=== PATIENT | female | born 1975 | race Caucasian/White ===

== ENCOUNTER 2019-05-19 21:19 | Emergency (ER) | payer BC ==
[2019-05-19] MEDS ORDERED: KETOROLAC 30 MG/ML INJ ONE (22:29)
[2019-05-19] MEDS ORDERED: dexAMETHasone 10 MG/ML VIAL ONE (22:29)
[2019-05-19] MEDS ORDERED: HYDROCODONE/CHLORPHEN 5 ML/OSYR ONE (22:29)
[2019-05-19 22:36] LABS: BUN Blood Urea Nitrogen 5 mg/dL (7-18); Bicarbonate 26 mmol/L (21-32); Glucose Level 90 mg/dL (74-106); Potassium 3.3 mmol/L (3.5-5.1); Sodium Level 140 mmol/L (136-145)
--- NOTE | 2019-05-19 22:49 | ER ---
Nurse's Notes [facility] Name: Ngoc Coelho Age: 44 yrs Sex: Female : 1975 Arrival Date: 05/19/2019 Time: 21:22 Bed 14 Private MD: Diagnosis: Chest pain, unspecified;Pleurisy Presentation: 05/19 21:26 Presenting complaint: Patient states: She has had a cough since , today she aj1 started having chest pain that is worse when she coughs or takes a deep breath. Denies fever. Reports nasal congestion, nausea, vomiting. Denies diarrhea. Transition of care: patient was not received from another setting of care. Onset of symptoms was May 19, 2019. Risk Assessment: Do you want to hurt yourself or someone else? Patient reports no desire to harm self or others. Initial Sepsis Screen: Does the patient meet any 2 criteria? No. Patient's initial sepsis screen is negative. Does the patient have a suspected source of infection? Yes: Productive cough/pneumonia. Care prior to arrival: None. 21:26 Method Of Arrival: Ambulatory [facility] 21:26 Acuity: LEXA 4 aj1 Triage Assessment: 21:29 General: Appears in no apparent distress. comfortable, Behavior is calm, cooperative, aj1 appropriate for age. Pain: Complains of pain in chest Pain currently is 6 out of 10 on a pain scale. Pain: Pain radiates to back Quality of pain is described as stabbing, Is continuous, Aggravated by coughing, deep breathing. Neuro: Level of Consciousness is awake, alert, obeys commands, Oriented to person, place, time, situation. Cardiovascular: Reports chest pain, Denies lightheadedness, palpitations, shortness of breath, Patient's skin is warm and dry. Respiratory: Airway is patent Respiratory effort is even, unlabored, Respiratory pattern is regular, symmetrical. Derm: Skin is pink, warm \T\ dry. normal. 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 - Social history:: Smoking status: Patient uses tobacco products, smokes one-half pack cigarettes per day. - Ebola Screening: : Patient denies travel to an Ebola-affected area in the 21 days before illness onset. - Family history:: not pertinent. - Hospitalizations: : No recent hospitalization is reported. Screenin:40 Abuse screen: Denies threats or abuse. Denies injuries from another. Nutritional wh screening: No deficits noted. Tuberculosis screening: No symptoms or risk factors identified. Fall Risk None identified. Assessment: 21:40 General: Appears in no apparent distress. Behavior is calm, cooperative, appropriate wh for age. Pain: Complains of pain in back and chest Pain does not radiate. Pain currently is 5 out of 10 on a pain scale. Pain began gradually. Neuro: Level of Consciousness is awake, alert, obeys commands, Oriented to person, place, time, situation, Appropriate for age. Cardiovascular: Heart tones S1 S2 Chest pain from coughing. Respiratory: Reports cough that is pain with cough Airway is patent Respiratory effort is even, unlabored, Respiratory pattern is regular, symmetrical, Breath sounds are clear bilaterally. GI: Abdomen is flat, non-distended. : No signs and/or symptoms were reported regarding the genitourinary system. EENT: No signs and/or symptoms were reported regarding the EENT system. Derm: Skin is intact, is healthy with good turgor, Skin is pink, warm \T\ dry. normal. Musculoskeletal: Circulation, motion, and sensation intact. 22:40 Reassessment: Patient appears in no apparent distress at this time. No changes from previously documented assessment. Patient and/or family updated on plan of care and expected duration. Pain level reassessed. Patient is alert, oriented x 3, equal unlabored respirations, skin warm/dry/pink. Vital Signs: 21:29 BP 122 / 67; Pulse 71; Resp 18; Temp 97.7; Pulse Ox 99% on R/A; Weight 77.56 kg (R); aj1 Height 5 ft. 7 in. (170.18 cm) (R); Pain 6/10; 22:39 BP 116 / 63; Pulse 59; Resp 18; Pulse Ox 99% on R/A; wh 21:29 Body Mass Index 26.78 (77.56 kg, 170.18 cm) aj1 ED Course: 21:22 Patient arrived in ED. jg7 21:29 Triage completed. aj1 21:29 Arm band placed on Patient placed in an exam room. [facility] 21:32 Carlos Mas MD is Attending Physician. rn 21:33 George Rosa is Primary Nurse. 21:40 Patient has correct armband on for positive identification. Placed in gown. Bed in low wh position. Call light in reach. Side rails up X 1. Pulse ox on. NIBP on. 21:50 Inserted saline lock: 22 gauge in right antecubital area, using aseptic technique. Blood collected. Patient maintains SpO2 saturation greater than 95% on room air. 22:15 XRAY Chest Pa And Lat (2 Views) In Process Unspecified. EDMS 22:56 No provider procedures requiring assistance completed. IV discontinued, intact, wh bleeding controlled, No redness/swelling at site. Administered Medications: 22:30 Drug: Tussionex Pennkinetic ER 5 ml Route: PO; 22:58 Follow up: Response: No adverse reaction; RASS: Alert and Calm (0) 22:34 Drug: TORadol - Ketorolac 15 mg Route: IVP; Site: right antecubital; 22:57 Follow up: Response: No adverse reaction 22:38 Drug: Decadron - Dexamethasone 10 mg Route: IVP; Site: right antecubital; 22:57 Follow up: Response: No adverse reaction Outcome: 22:48 Discharge ordered by MD. rn 22:56 Discharged to home ambulatory, with family. 22:56 Condition: stable 22:56 Discharge instructions given to patient, family, Instructed on discharge instructions, follow up and referral plans. no drinking with medication, no driving heavy equipment, medication usage, POC Demonstrated understanding of instructions, follow-up care, medications, POC Prescriptions given X 3. 22:58 Patient left the ED. Signatures: Dispatcher [employer] EDMS Berenice Cain, RN RN aj1 Carlos Mas MD MD rn Habalo, Winsy Genevieve Berry jg7
--- NOTE | 2019-05-19 22:49 | EDPHYS ---
Physician Documentation [facility] Name: Ngoc Coelho Age: 44 yrs Sex: Female : 1975 Arrival Date: 05/19/2019 Time: 21:22 Bed 14 Private MD: ED Physician Carlos Mas HPI: 05/19 21:43 This 44 yrs old Female presents to ER via Ambulatory with complaints of Chest rn Pain, Cough. 21:43 The patient or guardian reports chest pain that is located primarily in the anterior rn chest wall. Onset: today. The pain radiates to Associated signs and symptoms: Pertinent positives: cough, Pertinent negatives: diaphoresis, dizziness, headache, lower extremity pain, lower extremity swelling, lightheadedness, near syncope, palpitations, shortness of breath, syncope. The chest pain is described as sharp, stabbing. Duration: The patient or guardian reports multiple episodes, that are intermittent. Modifying factors: The symptoms are alleviated by nothing. the symptoms are aggravated by cough, deep breath. Severity of pain: At its worst the pain was moderate in the emergency department the pain is unchanged. The patient has not experienced similar symptoms in the past. Reports chest pain, began today, following cough for 2 weeks, non-productive, + smoker, no hemoptysis, no DVT/PE hx or risk factors. No trauma. No weight loss. . 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 - Social history:: Smoking status: Patient uses tobacco products, smokes one-half pack cigarettes per day. - Ebola Screening: : Patient denies travel to an Ebola-affected area in the 21 days before illness onset. - Family history:: not pertinent. - Hospitalizations: : No recent hospitalization is reported. ROS: 21:43 Constitutional: Negative for fever, chills, and weight loss, Eyes: Negative for injury, rn pain, redness, and discharge, ENT: Negative for injury, pain, and discharge, Neck: Negative for injury, pain, and swelling, Cardiovascular: + chest pain Respiratory: + cough and pleuritic chest pain Abdomen/GI: Negative for abdominal pain, diarrhea, and constipation, MS/Extremity: Negative for injury and deformity, Skin: Negative for injury, rash, and discoloration, Neuro: Negative for headache, weakness, numbness, tingling, and seizure. Exam: 21:43 Constitutional: This is a well developed, well nourished patient who is awake, alert, rn and in no acute distress. Head/Face: Normocephalic, atraumatic. Eyes: Pupils equal round and reactive to light, extra-ocular motions intact. Lids and lashes normal. Conjunctiva and sclera are non-icteric and not injected. Cornea within normal limits. Periorbital areas with no swelling, redness, or edema. ENT: No oral swelling or stridor Cardiovascular: Regular rate and rhythm, No pulse deficits. Respiratory: Lungs have equal breath sounds bilaterally, clear to auscultation. No increased work of breathing, no retractions or nasal flaring. Abdomen/GI: soft, non-tender MS/ Extremity: Pulses equal, no cyanosis. Neurovascular intact. Full, normal range of motion. Equal circumference. Neuro: Awake and alert, GCS 15, oriented to person, place, time, and situation. Cranial nerves II-XII grossly intact. Motor strength 5/5 in all extremities. Sensory grossly intact 22:10 ECG was reviewed by the Attending Physician. rn Vital Signs: 21:29 BP 122 / 67; Pulse 71; Resp 18; Temp 97.7; Pulse Ox 99% on R/A; Weight 77.56 kg (R); aj1 Height 5 ft. 7 in. (170.18 cm) (R); Pain 6/10; 22:39 BP 116 / 63; Pulse 59; Resp 18; Pulse Ox 99% on R/A; wh 21:29 Body Mass Index 26.78 (77.56 kg, 170.18 cm) aj1 MDM: 21:32 Patient medically screened. rn 22:20 Test interpretation: by ED physician or midlevel provider: ECG, plain radiologic rn studies, Xray neg for pneumothorax/pneumonia/acute process. 22:47 Differential diagnosis: acute pericarditis, chest wall pain, costochondritis, rn esophagitis, pericarditis, pleurisy, pneumonia, pneumothorax, pulmonary embolus. Data reviewed: vital signs, nurses notes, lab test result(s), EKG, radiologic studies, plain films, and as a result, I will discharge patient. Counseling: I had a detailed discussion with the patient and/or guardian regarding: the historical points, exam findings, and any diagnostic results supporting the discharge/admit diagnosis, lab results, radiology results, the need for outpatient follow up, to return to the emergency department if symptoms worsen or persist or if there are any questions or concerns that arise at home. Counseling: I had a detailed discussion with the patient and/or guardian regarding: smoking cessation. Response to treatment: the patient's symptoms have mildly improved after treatment, and as a result, I will discharge patient. Special discussion: I discussed with the patient/guardian in detail that at this point there is no indication for admission to the hospital. It is understood, however, that if the symptoms persist or worsen the patient needs to return immediately for re-evaluation. 05/19 21:43 Order name: Basic Metabolic Panel; Complete Time: 22:42 05/19 21:43 Order name: D-Dimer; Complete Time: 22:42 05/19 21:43 Order name: XRAY Chest Pa And Lat (2 Views) 05/19 21:43 Order name: Flu; Complete Time: 22:42 05/19 21:43 Order name: IV Start; Complete Time: 22:09 05/19 21:43 Order name: EKG; Complete Time: 21:44 05/19 21:43 Order name: EKG - Nurse/Tech; Complete Time: 22:09 rn EC:10 Rate is 64 beats/min. Rhythm is regular. QRS [place] is Normal. [place] interval is normal. QRS rn interval is normal. QT interval is normal. No Q waves. T waves are Normal. No ST changes noted. Clinical impression: Normal ECG. Interpreted by me. Reviewed by me. Administered Medications: 22:30 Drug: Tussionex Pennkinetic ER 5 ml Route: PO; 22:58 Follow up: Response: No adverse reaction; RASS: Alert and Calm (0) 22:34 Drug: TORadol - Ketorolac 15 mg Route: IVP; Site: right antecubital; 22:57 Follow up: Response: No adverse reaction 22:38 Drug: Decadron - Dexamethasone 10 mg Route: IVP; Site: right antecubital; 22:57 Follow up: Response: No adverse reaction Disposition: 05/19/19 22:48 Discharged to Home. Impression: Chest pain, unspecified, Pleurisy. - Condition is Stable. - Discharge Instructions: Nonspecific Chest Pain, Pleurisy. - Prescriptions for Ultram 50 mg Oral Tablet - take 1 tablet by ORAL route every 6 hours As needed; 15 tablet. Medrol (Pj) 4 mg Oral Tablets, Dose Pack - take 1 tablet by ORAL route as directed - follow package instructions; 1 packet. Guaifenesin AC 10- 100 mg/5 mL Oral Liquid - take 10 milliliter by ORAL route every 4 hours As needed; 240 milliliter. - Medication Reconciliation Form, Thank You Letter, Antibiotic Education, Prescription Opioid Use form. - Follow up: Private Physician; When: As needed; Reason: Recheck today's complaints, Re-evaluation by your physician. - Problem is new. - Symptoms have improved. Signatures: Dispatcher [employer] EDBerenice Barth RN RN aj1 Carlos Mas MD MD rn Habalo, Winsy Corrections: (The following items were deleted from the chart) 22:58 22:48 05/19/2019 22:48 Discharged to Home. Impression: Chest pain, unspecified; wh Pleurisy. Condition is Stable. Forms are Medication Reconciliation Form, Thank You Letter, Antibiotic Education, Prescription Opioid Use. Follow up: Private Physician; When: As needed; Reason: Recheck today's complaints, Re-evaluation by your physician. Problem is new. Symptoms have improved. rn
[2019-05-20 03:02] VITALS: TEMP 97.7; O2SAT 99
[2019-05-20 03:03] VITALS: BP 116/63
--- NOTE | 2019-05-20 07:43 | EKG ---
Test Date: 2019-05-19 Test Time: 21:58:28 Store Administrator: KRYSTIAN MEASUREMENT RESULTS: Intervals: Rate: 64 GA: 168 QRSD: 78 QT: 416 QTc: 429 [place]: P: 59 GA: 168 QRS: 74 T: 65 INTERPRETIVE STATEMENTS: Normal sinus rhythm Normal ECG Compared to ECG 09/29/2016 20:43:38 Junctional rhythm no longer present Electronically Signed On 05-20-19 07:42:10 SOOT BLOWER by Cedric Posadas
--- NOTE | 2019-05-20 08:19 | RAD REPORT ---
EXAM DESCRIPTION: RAD - Chest Pa And Lat (2 Views) - 05/19/2019 10:15 pm CLINICAL HISTORY: CHEST PAIN Chest pain. COMPARISON: Chest Single View dated 09/29/2016 FINDINGS: The lungs are clear. The heart is normal in size. No displaced fractures. IMPRESSION: No acute or concerning finding suspected.
== END 2019-05-19 22:58 | disposition home or self-care (01) ==
LOC: ER 21:19
DX: R09.1 Pleurisy (principal); F17.210 Nicotine dependence, cigarettes, uncomplicated
CPT/HCPCS: 93005; 80048; 36415; 85379; 87804 ×2; 71046; 96375; 96374; 99284; J1100